=== PATIENT | female | born 1950 | race Caucasian/White ===

== ENCOUNTER 2018-01-17 10:52 | Outpatient (CLI) | payer MEDICARE | END 2018-01-17 21:36 | disposition home or self-care (01) | LOC: EDBD 10:52 → SMA 10:52 | PROVIDERS: ATTEND Family Medicine | DX: Z12.31 Encounter for screening mammogram for malignant neoplasm of breast (principal); R92.1 Mammographic calcification found on diagnostic imaging of breast | CPT/HCPCS: 77067 ==

== ENCOUNTER 2019-10-07 11:24 | Outpatient (CLI) | payer MEDICARE | END 2019-10-07 20:26 | disposition home or self-care (01) | LOC: SMA 11:24 | DX: Z12.31 Encounter for screening mammogram for malignant neoplasm of breast (principal); N64.89 Other specified disorders of breast | CPT/HCPCS: 77067 ==